=== PATIENT | male | born 1975 | race Two or more races ===

== ENCOUNTER 2017-08-20 19:14 | Emergency (ER) | payer MEDICAID ==
[~2017-08-20] VITALS: Ht 165.1 cm; Wt 59.9 kg
[2017-08-20 20:40] VITALS: BP 142/96
== END 2017-08-20 23:07 | disposition home or self-care (01) ==
LOC: ER 19:14
DX: S62.602A Fracture of unspecified phalanx of right middle finger, initial encounter for closed fracture (principal); S60.031A Contusion of right middle finger without damage to nail, initial encounter; L60.8 Other nail disorders; W23.0XXA Caught, crushed, jammed, or pinched between moving objects, initial encounter; Y93.89 Activity, other specified; Y92.89 Other specified places as the place of occurrence of the external cause; Y99.8 Other external cause status
CPT/HCPCS: 10140; 10160; 73130